=== PATIENT | male | born 1960 | race African-American/Black ===

== ENCOUNTER 2017-07-21 16:17 | Emergency (ER) | payer MEDICAID, MEDICARE ==
[~2017-07-21] VITALS: Ht 175.3 cm; Wt 110.0 kg
[2017-07-21 16:18] VITALS: BP 171/101
== END 2017-07-21 19:44 | disposition left against medical advice (07) ==
LOC: ER 16:38
DX: R22.33 Localized swelling, mass and lump, upper limb, bilateral (principal); Z53.21 Procedure and treatment not carried out due to patient leaving prior to being seen by health care provider

== ENCOUNTER 2021-01-01 12:48 | Emergency (ER) | payer MEDICAID, MEDICARE ==
[~2021-01-01] VITALS: Ht 177.8 cm; Wt 102.0 kg
[2021-01-01] MEDS ORDERED: ONDANSETRON HCL 4MG/2ML INJ IV STA (13:11)
[2021-01-01] MEDS ORDERED: MORPHINE SULFATE 4 MG/ML CPJ (NOT FOR IM USE) IV STA (13:11)
[2021-01-01 13:27] LABS: BASOPHILS % 1.2 % (0.0-2.0); EOSINOPHILS % 1.9 % (0.0-5.0); HEMATOCRIT. 39.6 % (42.0-52.0); HEMOGLOBIN. 13.7 g/dL (14.0-18.0); LYMPHOCYTES % 41.8 % (20.0-50.0); MEAN CORPUSCULAR HEMOGLOBIN 32.6 pg (28.0-32.0); MEAN CORPUSCULAR VOLUME 94.3 fL (80.0-94.0); MEAN PLATELET VOLUME 7.9 fl (7.4-10.4); MONOCYTES % 14.5 % (2.0-8.0); NEUTROPHILS % 40.6 % (40.0-76.0); PLATELET 146 x1000/uL (130-400); RED CELL DISTRIBUTION WIDTH 15.1 % (11.6-14.6)
[2021-01-01 13:34] LABS: CHLORIDE 104 mEq/L (98-107)
[2021-01-01 13:37] LABS: INR 1.1; PROTHROMBIN TIME 11.8 sec (9.6-11.0)
[2021-01-01 15:16] LABS: CLARITY URINE CLEAR (CLEAR); COLOR URINE YELLOW (YELLOW); KETONES URINE NEGATIVE (NEGATIVE); LEUKOCYTE ESTERASE URINE NEGATIVE (NEGATIVE); NITRITE URINE NEGATIVE (NEGATIVE); OCCULT BLOOD URINE NEGATIVE (NEGATIVE); PH URINE 5.5 (4.5-8.0); PROTEIN URINE 2+ (NEGATIVE); SPECIFIC GRAVITY URINE 1.013 (1.005-1.030); UROBILINOGEN URINE 0.2 E.U./dL (0.2-1.0)
[2021-01-01 16:07] VITALS: BP 175/105
== END 2021-01-01 16:25 | disposition home or self-care (01) ==
LOC: ER 13:04
DX: R10.31 Right lower quadrant pain (principal); M54.5 Low back pain; R80.9 Proteinuria, unspecified; I11.0 Hypertensive heart disease with heart failure; I50.9 Heart failure, unspecified
CPT/HCPCS: 36415; 74176; 80053; 81003; 83690; 85025; 85610; 96374; 99284; J2405; Z7610; J2270

== ENCOUNTER 2021-11-04 13:19 | Inpatient (IN) | payer MEDICAID ==
[~2021-11-04] VITALS: Ht 175.3 cm; Wt 53.1 kg
[2021-11-04] MEDS ORDERED: ONDANSETRON HCL 4MG/2ML INJ IV ONE (14:15)
[2021-11-04] MEDS ORDERED: MORPHINE SULFATE 4 MG/ML CPJ (NOT FOR IM USE) IV ONE (14:15)
[2021-11-04] MEDS ORDERED: SODIUM CHLORIDE 0.9% 1,000 ML IV ONE (14:15)
[2021-11-04 15:55] LABS: BASOPHILS % 0.5 % (0.0-2.0); EOSINOPHILS % 4.9 % (0.0-5.0); HEMATOCRIT. 44.3 % (42.0-52.0); MEAN CORPUSCULAR HEMOGLOBIN 30.2 pg (28.0-32.0); MEAN PLATELET VOLUME 8.9 fl (7.4-10.4); MONOCYTES % 11.8 % (2.0-8.0); NEUTROPHILS % 48.8 % (40.0-76.0); PLATELET 161 x1000/uL (130-400); RED BLOOD CELL COUNT 4.98 mill/uL (4.7-6.1); RED CELL DISTRIBUTION WIDTH 15.1 % (11.6-14.6)
[2021-11-04 16:00] LABS: CHLORIDE 106 mEq/L (98-107)
[2021-11-04] MEDS ORDERED: ACETAMINOPHEN 325MG TABLET PO PRN ×2 (16:45)
[2021-11-04] MEDS ORDERED: CLONIDINE 0.1MG TABLET PO PRN (16:45)
[2021-11-04] MEDS ORDERED: NALOXONE HCL 0.4MG/ML VIAL IV PRN (17:00)
[2021-11-04] MEDS: DEXT 5%/0.9% NACL 1,000 ML IV SCH (17:01)
[2021-11-04] MEDS: ONDANSETRON HCL 4MG/2ML INJ IV PRN (23:10)
[2021-11-04] MEDS: MORPHINE SULFATE 2 MG/ML CPJ (NOT FOR IM USE) IV PRN (23:12)
[2021-11-05] VITALS: BP_SYST 158; BP_SYST 166; BP_DIAS 89; BP_DIAS 95
[2021-11-05] MEDS: ZOLPIDEM TARTRATE 5MG TABLET PO PRN ×2 (00:42→23:13)
[2021-11-05] MEDS ORDERED: ZOLP10TA2 PO (03:09)
[2021-11-05] MEDS ORDERED: TAMS-11 PO (03:09)
[2021-11-05] MEDS ORDERED: RIVA20TA PO (03:09)
[2021-11-05] MEDS ORDERED: CARV25TA47 MT (03:09)
[2021-11-05] MEDS ORDERED: ZOLP5TAB2 PO (03:09)
[2021-11-05] MEDS ORDERED: *PATIENT'S OWN MEDICATION STORAGE XX SCH (05:30)
[2021-11-05 06:27] LABS: BASOPHILS % 0.6 % (0.0-2.0); EOSINOPHILS % 5.6 % (0.0-5.0); HEMATOCRIT. 39.2 % (42.0-52.0); HEMOGLOBIN. 13.1 g/dL (14.0-18.0); LYMPHOCYTES % 37.2 % (20.0-50.0); MEAN CORPUSCULAR HEMOGLOBIN 30.3 pg (28.0-32.0); MEAN CORPUSCULAR VOLUME 90.6 fL (80.0-94.0); MEAN PLATELET VOLUME 8.8 fl (7.4-10.4); MONOCYTES % 13.1 % (2.0-8.0); NEUTROPHILS % 43.5 % (40.0-76.0); PLATELET 141 x1000/uL (130-400); RED BLOOD CELL COUNT 4.33 mill/uL (4.7-6.1)
[2021-11-05 07:15] LABS: CHLORIDE 110 mEq/L (98-107)
[2021-11-05 07:25] LABS: PHOSPHORUS 3.4 mg/dL (2.5-4.9)
[2021-11-05] MEDS: ONDANSETRON HCL 4MG/2ML INJ IV PRN ×2 (07:58→20:39)
[2021-11-05 08:00] VITALS: BP 146/86
[2021-11-05] MEDS: TAMSULOSIN HCL 0.4MG SR CAPSULE PO SCH (11:09)
[2021-11-05] MEDS: DEXT 5%/0.9% NACL 1,000 ML IV SCH (11:09)
[2021-11-05 11:47] LABS: CLARITY URINE CLEAR (CLEAR); COLOR URINE YELLOW (YELLOW); KETONES URINE NEGATIVE (NEGATIVE); LEUKOCYTE ESTERASE URINE NEGATIVE (NEGATIVE); NITRITE URINE NEGATIVE (NEGATIVE); OCCULT BLOOD URINE NEGATIVE (NEGATIVE); PROTEIN URINE 2+ (NEGATIVE); SPECIFIC GRAVITY URINE 1.015 (1.005-1.030); UROBILINOGEN URINE 0.2 E.U./dL (0.2-1.0)
[2021-11-05 12:00] VITALS: BP 152/92
[2021-11-05] MEDS ORDERED: MEDICATION NOT ON FORMULARY EA (Carvedilol 1 TAB) MT SCH (13:00)
[2021-11-05] MEDS: CARVEDILOL 12.5MG TABLET PO SCH ×2 (14:37→20:40)
[2021-11-05] MEDS: ENOXAPARIN 60MG/0.6ML SYR SUBCUT SCH (14:37)
[2021-11-05 16:57] LABS: PHOSPHORUS 2.2 mg/dL (2.5-4.9)
[2021-11-05 17:00] LABS: TOTAL IRON BINDING CAPACITY 328 ug/dL (250-450)
[2021-11-05 17:16] LABS: FOLIC ACID (FOLATE) SERUM 12.2 ng/mL (>5.38)
[2021-11-05 20:00] VITALS: BP 155/92
[2021-11-05] MEDS: PANTOPRAZOLE SODIUM 40 MG/VIAL IV SCH (20:39)
[2021-11-05] MEDS: MORPHINE SULFATE 2 MG/ML CPJ (NOT FOR IM USE) IV PRN ×2 (21:58→22:06)
[2021-11-06] MEDS: ENOXAPARIN 60MG/0.6ML SYR SUBCUT SCH ×2 (02:01→14:00)
[2021-11-06 07:50] LABS: INR 1.2; PROTHROMBIN TIME 12.3 sec (9.6-11.0)
[2021-11-06 07:59] LABS: BASOPHILS % 0.4 % (0.0-2.0); EOSINOPHILS % 4.9 % (0.0-5.0); HEMATOCRIT. 38.5 % (42.0-52.0); LYMPHOCYTES % 41.1 % (20.0-50.0); MEAN CORPUSCULAR HEMOGLOBIN 30.3 pg (28.0-32.0); MEAN CORPUSCULAR VOLUME 90.2 fL (80.0-94.0); MONOCYTES % 14.1 % (2.0-8.0); NEUTROPHILS % 39.5 % (40.0-76.0); PLATELET 121 x1000/uL (130-400); RED BLOOD CELL COUNT 4.27 mill/uL (4.7-6.1); RED CELL DISTRIBUTION WIDTH 14.7 % (11.6-14.6)
[2021-11-06 08:00] VITALS: BP 135/86
[2021-11-06 08:01] LABS: CHLORIDE 108 mEq/L (98-107)
[2021-11-06] MEDS: ONDANSETRON HCL 4MG/2ML INJ IV PRN (08:35)
[2021-11-06] MEDS: PANTOPRAZOLE SODIUM 40 MG/VIAL IV SCH (08:36)
[2021-11-06] MEDS: TAMSULOSIN HCL 0.4MG SR CAPSULE PO SCH (08:37)
[2021-11-06] MEDS: CARVEDILOL 12.5MG TABLET PO SCH (08:37)
[2021-11-06] MEDS ORDERED: POTASSIUM CHLORIDE 20MEQ/PACKET PO SCH (11:45)
[2021-11-06 12:00] VITALS: BP 138/90
[2021-11-06 16:00] VITALS: BP 147/90
[2021-11-06 17:33] VITALS: BP 147/90
[2021-11-06 17:48] VITALS: BP 147/90
== END 2021-11-06 19:07 | disposition home or self-care (01) | DRG 254 ==
LOC: ER 13:19 → SUPCPDRO 14:55 → 6EST 14:57 → ENRESERV 16:37 → 6EST 22:09
PROVIDERS: ADMIT Internal Medicine; ATTEND Internal Medicine
DX: K43.6 Other and unspecified ventral hernia with obstruction, without gangrene (principal); K56.609 Unspecified intestinal obstruction, unspecified as to partial versus complete obstruction; N17.9 Acute kidney failure, unspecified; E44.1 Mild protein-calorie malnutrition; E83.39 Other disorders of phosphorus metabolism; E87.8 Other disorders of electrolyte and fluid balance, not elsewhere classified; I50.9 Heart failure, unspecified; I13.0 Hypertensive heart and chronic kidney disease with heart failure and stage 1 through stage 4 chronic kidney disease, or unspecified chronic kidney disease; I48.20 Chronic atrial fibrillation, unspecified; N40.0 Benign prostatic hyperplasia without lower urinary tract symptoms; D64.9 Anemia, unspecified; E80.6 Other disorders of bilirubin metabolism; R74.01 Elevation of levels of liver transaminase levels; Z60.2 Problems related to living alone; K42.9 Umbilical hernia without obstruction or gangrene; N18.9 Chronic kidney disease, unspecified; Z20.822 Contact with and (suspected) exposure to COVID-19; E87.6 Hypokalemia; J45.909 Unspecified asthma, uncomplicated; Z79.01 Long term (current) use of anticoagulants; Z93.3 Colostomy status; Z90.49 Acquired absence of other specified parts of digestive tract; Z79.899 Other long term (current) drug therapy; Z68.1 Body mass index [BMI] 19.9 or less, adult
CPT/HCPCS: 36415; 71045; 74018; 74176; 80048; 80053; 81003; 82550; 82570; 82607; 82728; 82746; 83540; 83550; 83735; 83880; 84100; 84300; 84484; 85025; 85044; 85651; 86140; 87426; 93005; 99285; C9113; J1650; J2270; J2405; J7030; J7042

== ENCOUNTER 2022-09-15 09:26 | Inpatient (IN) | payer MEDICAID ==
[~2022-09-15] VITALS: Ht 330.2 cm; Wt 108.9 kg
[~2022-09-15 09:26] MED LIST: CARV25TA47 MT; RIVA20TA PO; TAMS-11 PO; ZOLP10TA2 PO; ZOLP5TAB2 PO
[2022-09-15] MEDS ORDERED: ONDANSETRON HCL 4MG/2ML INJ IV STA ×4 (10:04→16:04)
[2022-09-15] MEDS ORDERED: MORPHINE SULFATE 4 MG/ML CPJ (NOT FOR IM USE) IV STA ×4 (10:04→16:04)
[2022-09-15] MEDS ORDERED: SODIUM CHLORIDE 0.9% 1,000 ML IV ONE ×3 (10:15)
[2022-09-15 11:15] LABS: BASOPHILS % 0.4 % (0.0-2.0); EOSINOPHILS % 2.3 % (0.0-5.0); HEMATOCRIT. 43.4 % (42.0-52.0); HEMOGLOBIN. 14.8 g/dL (14.0-18.0); LYMPHOCYTES % 15.1 % (20.0-50.0); MEAN CORPUSCULAR HEMOGLOBIN 31.2 pg (28.0-32.0); MEAN CORPUSCULAR VOLUME 91.5 fL (80.0-94.0); MEAN PLATELET VOLUME 9.1 fl (7.4-10.4); MONOCYTES % 7.7 % (2.0-8.0); NEUTROPHILS % 74.5 % (40.0-76.0); PLATELET 154 x1000/uL (130-400); RED BLOOD CELL COUNT 4.75 mill/uL (4.7-6.1); RED CELL DISTRIBUTION WIDTH 16.3 % (11.6-14.6)
[2022-09-15 11:25] LABS: CHLORIDE 100 mEq/L (98-107)
[2022-09-15] MEDS ORDERED: POTASSIUM CHLORIDE 20MEQ TABLET SR PO ONE (11:45)
[2022-09-15] MEDS ORDERED: IOHEXOL-300 100 ML BOTTLE ONE (12:21)
[2022-09-15] MEDS ORDERED: VISCOUS LIDOCAINE 2% 15 ML UDC MM STA (16:04)
[2022-09-16] VITALS: BP 130/83
[2022-09-16 00:49] VITALS: BP 130/83
[2022-09-16] MEDS ORDERED: MORPHINE SULFATE 2 MG/ML CPJ (NOT FOR IM USE) IV PRN (07:45)
[2022-09-16] MEDS ORDERED: ONDANSETRON HCL 4MG/2ML INJ IV PRN (07:45)
[2022-09-16 08:00] VITALS: BP_SYST 136; BP_SYST 138; BP_DIAS 86; BP_DIAS 89
[2022-09-16] MEDS ORDERED: NALOXONE HCL 0.4MG/ML VIAL IV PRN (08:00)
[2022-09-16] MEDS: PANTOPRAZOLE SODIUM 40 MG/VIAL IV SCH (10:01)
[2022-09-16] MEDS: ENOXAPARIN 30MG/0.3ML SYR SUBCUT SCH ×2 (10:01→21:00)
[2022-09-16] MEDS: DEXT 5%/0.45% NACL 1000ML 1,000 ML IV SCH ×2 (10:07→21:05)
[2022-09-16 12:00] VITALS: BP_SYST 138; BP_SYST 140; BP_DIAS 77; BP_DIAS 89
[2022-09-16 16:00] VITALS: BP_SYST 137; BP_SYST 138; BP_DIAS 86; BP_DIAS 89
[2022-09-16 20:00] VITALS: BP 159/93
[2022-09-17] VITALS: BP 156/97
[2022-09-17 04:00] VITALS: BP 155/90
[2022-09-17 07:52] LABS: CHLORIDE 106 mEq/L (98-107)
[2022-09-17 07:53] LABS: BASOPHILS % 0.3 % (0.0-2.0); EOSINOPHILS % 6.8 % (0.0-5.0); HEMATOCRIT. 38.2 % (42.0-52.0); HEMOGLOBIN. 12.9 g/dL (14.0-18.0); LYMPHOCYTES % 30.4 % (20.0-50.0); MEAN CORPUSCULAR HEMOGLOBIN 30.9 pg (28.0-32.0); MEAN CORPUSCULAR VOLUME 91.4 fL (80.0-94.0); MEAN PLATELET VOLUME 8.9 fl (7.4-10.4); MONOCYTES % 12.4 % (2.0-8.0); NEUTROPHILS % 50.1 % (40.0-76.0); PLATELET 125 x1000/uL (130-400); RED BLOOD CELL COUNT 4.18 mill/uL (4.7-6.1); RED CELL DISTRIBUTION WIDTH 16.1 % (11.6-14.6)
[2022-09-17 08:00] VITALS: BP 138/81
[2022-09-17] MEDS: DEXT 5%/0.45% NACL 1000ML 1,000 ML IV SCH ×2 (10:29→23:34)
[2022-09-17] MEDS: ENOXAPARIN 30MG/0.3ML SYR SUBCUT SCH ×2 (10:31→21:48)
[2022-09-17] MEDS: PANTOPRAZOLE SODIUM 40 MG/VIAL IV SCH (10:33)
[2022-09-17] MEDS ORDERED: POTASSIUM CHLORIDE 20MEQ TABLET SR PO SCH (11:30)
[2022-09-17 12:00] VITALS: BP 138/88
[2022-09-17 16:00] VITALS: BP 165/113
[2022-09-18] VITALS: BP 129/80
[2022-09-18 04:00] VITALS: BP 136/77
[2022-09-18 08:00] VITALS: BP 143/89
[2022-09-18] MEDS: PANTOPRAZOLE SODIUM 40 MG/VIAL IV SCH (09:53)
[2022-09-18] MEDS: ENOXAPARIN 30MG/0.3ML SYR SUBCUT SCH (09:56)
[2022-09-18 12:00] VITALS: BP 152/99
[2022-09-18] MEDS: DEXT 5%/0.45% NACL 1000ML 1,000 ML IV SCH (12:41)
== END 2022-09-18 15:50 | disposition home or self-care (01) | DRG 247 ==
LOC: ER 09:26 → 6EST 14:28
PROVIDERS: ADMIT Internal Medicine; ATTEND Internal Medicine
DX: K56.609 Unspecified intestinal obstruction, unspecified as to partial versus complete obstruction (principal); I11.0 Hypertensive heart disease with heart failure; I50.9 Heart failure, unspecified; J45.909 Unspecified asthma, uncomplicated; I48.91 Unspecified atrial fibrillation
CPT/HCPCS: 36415; 74018; 74177; 80048; 80053; 83605; 85025; 93005; 99291; C9113; J1650; J2270; J2405; J7030; Q9967

== ENCOUNTER 2022-11-08 11:46 | Inpatient (IN) | payer MEDICAID ==
[~2022-11-08] VITALS: Ht 175.3 cm; Wt 113.4 kg
[2022-11-08 13:03] LABS: BASOPHILS % 0.7 % (0.0-2.0); EOSINOPHILS % 1.2 % (0.0-5.0); HEMOGLOBIN. 13.7 g/dL (14.0-18.0); LYMPHOCYTES % 19.9 % (20.0-50.0); MEAN CORPUSCULAR HEMOGLOBIN 31.4 pg (28.0-32.0); MONOCYTES % 6.6 % (2.0-8.0); NEUTROPHILS % 71.6 % (40.0-76.0); RED BLOOD CELL COUNT 4.36 mill/uL (4.7-6.1); RED CELL DISTRIBUTION WIDTH 16.1 % (11.6-14.6)
[2022-11-08 13:08] LABS: CHLORIDE 103 mEq/L (98-107)
[2022-11-08 13:50] LABS: MEAN PLATELET VOLUME 9.9 fl (7.4-10.4); PLATELET 122 x1000/uL (130-400)
[2022-11-08] MEDS ORDERED: ASPIRIN 325MG EC TABLET PO NR (14:00)
[2022-11-08] MEDS ORDERED: FUROSEMIDE 20MG/2ML VIAL IVP ONE (15:30)
[2022-11-08] MEDS ORDERED: ASPIRIN 325MG EC TABLET PO SCH (16:45)
[2022-11-08] MEDS: IPRATROPIUM BROMIDE (0.02%) 0.5MG/2.5ML NEB HHN SCH (17:06)
[2022-11-08] MEDS: ALBUTEROL (0.083%) 2.5MG/3ML NEB HHN SCH (17:06)
[2022-11-08] MEDS: FUROSEMIDE 40MG/4ML VIAL IVP SCH (17:26)
[2022-11-08 18:00] VITALS: BP 135/114
[2022-11-08 18:04] VITALS: BP 135/114
[2022-11-08 20:00] VITALS: BP 132/88
[2022-11-08] MEDS ORDERED: INFLUENZA VACCINE 05/PF 0.5 ML SYRINGE IM ONE (20:00)
[2022-11-08 20:40] LABS: BASOPHILS % 0.4 % (0.0-2.0); EOSINOPHILS % 1.7 % (0.0-5.0); HEMATOCRIT. 42.9 % (42.0-52.0); HEMOGLOBIN. 14.1 g/dL (14.0-18.0); LYMPHOCYTES % 20.6 % (20.0-50.0); MEAN CORPUSCULAR HEMOGLOBIN 31.4 pg (28.0-32.0); MEAN CORPUSCULAR VOLUME 95.3 fL (80.0-94.0); MEAN PLATELET VOLUME 9.7 fl (7.4-10.4); NEUTROPHILS % 72.3 % (40.0-76.0); PLATELET 125 x1000/uL (130-400); RED CELL DISTRIBUTION WIDTH 16.2 % (11.6-14.6)
[2022-11-08] MEDS: ZOLPIDEM TARTRATE 5MG TABLET PO SCH (21:22)
[2022-11-08] MEDS: CARVEDILOL 12.5MG TABLET PO SCH (21:23)
[2022-11-08] MEDS: ENOXAPARIN 30MG/0.3ML SYR SUBCUT SCH (21:24)
[2022-11-09] VITALS: BP 143/78
[2022-11-09] MEDS: ALBUTEROL (0.083%) 2.5MG/3ML NEB HHN SCH ×4 (01:40→20:59)
[2022-11-09] MEDS: IPRATROPIUM BROMIDE (0.02%) 0.5MG/2.5ML NEB HHN SCH ×4 (01:40→20:59)
[2022-11-09 04:00] VITALS: BP 160/112
[2022-11-09] MEDS: FUROSEMIDE 40MG/4ML VIAL IVP SCH (06:26)
[2022-11-09 08:00] VITALS: BP 137/100
[2022-11-09 08:16] LABS: HEPATITIS B SURFACE ANTIGEN NEGATIVE
[2022-11-09] MEDS: ENOXAPARIN 30MG/0.3ML SYR SUBCUT SCH ×2 (08:35→21:32)
[2022-11-09] MEDS: TAMSULOSIN HCL 0.4MG SR CAPSULE PO SCH (08:35)
[2022-11-09] MEDS: CARVEDILOL 12.5MG TABLET PO SCH ×2 (08:46→22:34)
[2022-11-09] MEDS ORDERED: FUROSEMIDE 40MG/4ML VIAL IVP SCH ×2 (09:00)
[2022-11-09] MEDS ORDERED: LOSARTAN POTASSIUM 25 MG TABLET PO SCH (09:00)
[2022-11-09] MEDS ORDERED: NALOXONE HCL 0.4MG/ML VIAL IV PRN (09:00)
[2022-11-09] MEDS: MORPHINE SULFATE 2 MG/ML CPJ (NOT FOR IM USE) IV PRN (09:09)
[2022-11-09 12:00] VITALS: BP 104/87
[2022-11-09 16:00] VITALS: BP 118/82
[2022-11-09] MEDS: LOSARTAN POTASSIUM 25 MG TABLET PO SCH (17:46)
[2022-11-09] MEDS: FUROSEMIDE 100MG/10ML VIAL IVP SCH (17:47)
[2022-11-09 20:00] VITALS: BP 124/99
[2022-11-09] MEDS: ZOLPIDEM TARTRATE 5MG TABLET PO SCH (22:35)
[2022-11-10] VITALS: BP 124/87
[2022-11-10] MEDS: ALBUTEROL (0.083%) 2.5MG/3ML NEB HHN SCH ×2 (02:37→07:51)
[2022-11-10] MEDS: IPRATROPIUM BROMIDE (0.02%) 0.5MG/2.5ML NEB HHN SCH ×2 (02:38→07:51)
[2022-11-10 04:00] VITALS: BP 137/104
[2022-11-10] MEDS: MORPHINE SULFATE 2 MG/ML CPJ (NOT FOR IM USE) IV PRN ×2 (04:32→08:28)
[2022-11-10 06:30] VITALS: BP 141/95
[2022-11-10] MEDS: FUROSEMIDE 100MG/10ML VIAL IVP SCH (07:01)
[2022-11-10 08:00] VITALS: BP 120/88
[2022-11-10 08:07] LABS: CHLORIDE 100 mEq/L (98-107)
[2022-11-10 08:13] LABS: BASOPHILS % 0.9 % (0.0-2.0); EOSINOPHILS % 3.3 % (0.0-5.0); HEMATOCRIT. 38.9 % (42.0-52.0); HEMOGLOBIN. 12.8 g/dL (14.0-18.0); LYMPHOCYTES % 27.8 % (20.0-50.0); MEAN CORPUSCULAR HEMOGLOBIN 31.6 pg (28.0-32.0); MEAN CORPUSCULAR VOLUME 95.9 fL (80.0-94.0); MEAN PLATELET VOLUME 9.3 fl (7.4-10.4); MONOCYTES % 9.3 % (2.0-8.0); NEUTROPHILS % 58.7 % (40.0-76.0); PLATELET 89 x1000/uL (130-400); RED BLOOD CELL COUNT 4.06 mill/uL (4.7-6.1)
[2022-11-10] MEDS: CARVEDILOL 12.5MG TABLET PO SCH (08:27)
[2022-11-10] MEDS: TAMSULOSIN HCL 0.4MG SR CAPSULE PO SCH (08:27)
[2022-11-10] MEDS: ENOXAPARIN 30MG/0.3ML SYR SUBCUT SCH (08:27)
[2022-11-10] MEDS: LOSARTAN POTASSIUM 25 MG TABLET PO SCH (08:27)
[2022-11-10] MEDS ORDERED: REGADENOSON 0.4 MG/5 ML IV NR (09:15)
[2022-11-10] MEDS ORDERED: FURO-151 MT (10:44)
[2022-11-10] MEDS ORDERED: LOSA25TA26 MT (10:44)
[2022-11-10] MEDS ORDERED: ASPIRIN 81MG EC TABLET PO NR (11:15)
[2022-11-10 12:00] VITALS: BP 101/73
[2022-11-10] MEDS ORDERED: HYDROCODONE/ACETAMINOPHEN 5/325MG TABLET PO NR (12:45)
[2022-11-11] MEDS ORDERED: ASPIRIN 81MG EC TABLET PO SCH (09:00)
[2022-11-22] MEDS ORDERED: SACU1TAB MT (13:26)
[2022-11-22] MEDS ORDERED: ASPI-1406 MT (13:26)
== END 2022-11-10 15:30 | disposition home or self-care (01) | DRG 194 ==
LOC: ER 13:09 → 8WST 14:48
PROVIDERS: ADMIT Internal Medicine; ATTEND Internal Medicine
DX: I11.0 Hypertensive heart disease with heart failure (principal); N17.9 Acute kidney failure, unspecified; E44.0 Moderate protein-calorie malnutrition; I48.92 Unspecified atrial flutter; I42.9 Cardiomyopathy, unspecified; Z79.01 Long term (current) use of anticoagulants; I48.0 Paroxysmal atrial fibrillation; E66.9 Obesity, unspecified; I50.23 Acute on chronic systolic (congestive) heart failure; G47.33 Obstructive sleep apnea (adult) (pediatric); I49.3 Ventricular premature depolarization; J45.909 Unspecified asthma, uncomplicated; Z68.37 Body mass index [BMI] 37.0-37.9, adult; Z79.899 Other long term (current) drug therapy; Z68.36 Body mass index [BMI] 36.0-36.9, adult; Z90.79 Acquired absence of other genital organ(s); Z93.3 Colostomy status
CPT/HCPCS: 36415; 71045; 80048; 80053; 83880; 84484; 85025; 86803; 87340; 90686; 93005; 93306; 93970; 94640; 99285; J1650; J1940; J2270

== ENCOUNTER 2022-11-12 23:37 | Emergency (ER) | payer MEDICAID ==
[~2022-11-12] VITALS: Ht 185.4 cm; Wt 122.0 kg
[~2022-11-12 23:37] MED LIST changes: +FURO-151 MT; +LOSA25TA26 MT
[2022-11-13 00:15] VITALS: BP 140/87
[2022-11-13 00:57] LABS: HEMOGLOBIN. 12.9 g/dL (14.0-18.0); MEAN CORPUSCULAR VOLUME 93.7 fL (80.0-94.0); MEAN PLATELET VOLUME 8.9 fl (7.4-10.4); PLATELET 129 x1000/uL (130-400); RED BLOOD CELL COUNT 4.16 mill/uL (4.7-6.1); RED CELL DISTRIBUTION WIDTH 15.8 % (11.6-14.6)
[2022-11-13 01:00] LABS: CHLORIDE 103 mEq/L (98-107)
[2022-11-13 02:24] LABS: PLATELET ESTIMATE NORMAL
[2022-11-13] MEDS ORDERED: HYDROCODONE/ACETAMINOPHEN 5/325MG TABLET PO ONE (04:45)
[2022-11-13] MEDS ORDERED: CLINDAMYCIN 600 MG in DEXTROSE 5% WATER 50 ML IV ONE (07:30)
[2022-11-13] MEDS ORDERED: CLINDAMYCIN 600MG PREMIX 50 ML IV SCH (07:45)
== END 2022-11-13 06:27 | disposition home or self-care (01) ==
LOC: ER 23:37
DX: R10.32 Left lower quadrant pain (principal); R19.34 Left lower quadrant abdominal rigidity; K46.9 Unspecified abdominal hernia without obstruction or gangrene; K40.90 Unilateral inguinal hernia, without obstruction or gangrene, not specified as recurrent; K80.50 Calculus of bile duct without cholangitis or cholecystitis without obstruction; I11.0 Hypertensive heart disease with heart failure; I50.9 Heart failure, unspecified; Z90.79 Acquired absence of other genital organ(s)
CPT/HCPCS: 36415; 74176; 80053; 85025; 99284; J3490; J7060

== ENCOUNTER 2022-12-01 06:46 | Inpatient (IN) | payer MEDICAID ==
[~2022-12-01] VITALS: Ht 175.3 cm; Wt 117.9 kg
[~2022-12-01 06:46] MED LIST changes: +ASPI-1406 MT; -LOSA25TA26 MT; +SACU1TAB MT; -ZOLP10TA2 PO
[2022-12-01] MEDS ORDERED: FUROSEMIDE 40MG/4ML VIAL IVP ONE (10:00)
[2022-12-01 11:13] LABS: BASOPHILS % 0.6 % (0.0-2.0); EOSINOPHILS % 2.4 % (0.0-5.0); HEMATOCRIT. 37.5 % (42.0-52.0); HEMOGLOBIN. 12.5 g/dL (14.0-18.0); LYMPHOCYTES % 28.4 % (20.0-50.0); MEAN CORPUSCULAR VOLUME 93.5 fL (80.0-94.0); MEAN PLATELET VOLUME 9.1 fl (7.4-10.4); MONOCYTES % 13.7 % (2.0-8.0); NEUTROPHILS % 54.9 % (40.0-76.0); PLATELET 153 x1000/uL (130-400); RED BLOOD CELL COUNT 4.01 mill/uL (4.7-6.1)
[2022-12-01 11:20] LABS: CHLORIDE 107 mEq/L (98-107)
[2022-12-01 11:21] LABS: INR 1.4; PROTHROMBIN TIME 15.1 sec (9.6-11.0)
[2022-12-01] MEDS ORDERED: FUROSEMIDE 40MG/4ML VIAL IVP NR (19:00)
[2022-12-01 21:30] VITALS: BP 118/96
[2022-12-01 21:37] VITALS: BP 118/96
[2022-12-01] MEDS ORDERED: ONDANSETRON HCL 4MG/2ML INJ IV PRN (22:15)
[2022-12-01] MEDS ORDERED: ACETAMINOPHEN 325MG TABLET PO PRN (22:15)
[2022-12-01] MEDS ORDERED: CLONIDINE 0.1MG TABLET PO PRN (22:15)
[2022-12-01] MEDS ORDERED: NALOXONE HCL 0.4MG/ML VIAL IV PRN (23:30)
[2022-12-01] MEDS: METHYLPREDNISOLONE SOD SUCC 40 MG/ML VIAL IV SCH (23:33)
[2022-12-01] MEDS: ZOLPIDEM TARTRATE 5MG TABLET PO SCH (23:33)
[2022-12-01 23:34] VITALS: BP 135/92
[2022-12-01] MEDS: RIVAROXABAN 20 MG TABLET PO SCH (23:35)
[2022-12-01] MEDS: TAMSULOSIN HCL 0.4MG SR CAPSULE PO SCH (23:35)
[2022-12-02] VITALS (8 sets, daily range): BP systolic 120–156; BP diastolic 61–113
[2022-12-02] MEDS: IPRATROPIUM/ALBUTEROL 0.5-3(2.5)MG/3ML NEB HHN SCH ×7 (00:38→21:11)
[2022-12-02] MEDS: GUAIFENESIN-DM 200MG-20MG/10ML UDC PO PRN ×3 (01:35→21:46)
[2022-12-02] MEDS: METHYLPREDNISOLONE SOD SUCC 40 MG/ML VIAL IV SCH ×3 (06:35→21:37)
[2022-12-02 07:16] LABS: BASOPHILS % 0.3 % (0.0-2.0); EOSINOPHILS % 0.1 % (0.0-5.0); HEMATOCRIT. 36.4 % (42.0-52.0); LYMPHOCYTES % 13.7 % (20.0-50.0); MEAN CORPUSCULAR HEMOGLOBIN 30.9 pg (28.0-32.0); MEAN CORPUSCULAR VOLUME 93.4 fL (80.0-94.0); MEAN PLATELET VOLUME 9.5 fl (7.4-10.4); MONOCYTES % 4.7 % (2.0-8.0); NEUTROPHILS % 81.2 % (40.0-76.0); PLATELET 149 x1000/uL (130-400); RED BLOOD CELL COUNT 3.89 mill/uL (4.7-6.1)
[2022-12-02] MEDS: HYDROCODONE/ACETAMINOPHEN 5/325MG TABLET PO PRN ×2 (07:37→14:23)
[2022-12-02 07:54] LABS: CREATINE KINASE MB FRACTION 2.9 ng/mL (0.5-3.6)
[2022-12-02] MEDS ORDERED: TAMSULOSIN HCL 0.4MG SR CAPSULE PO SCH (09:00)
[2022-12-02] MEDS: FUROSEMIDE 40MG/4ML VIAL IVP SCH ×2 (09:43→21:37)
[2022-12-02] MEDS: ASPIRIN 81MG EC TABLET PO SCH (09:43)
[2022-12-02] MEDS ORDERED: DILTIAZEM HCL 5MG/ML 5ML VIAL IV NR (10:30)
[2022-12-02 11:32] LABS: BG BASE EXCESS -1.4 mmol/L (-2.0-2.0); BG CARBOXYHEMOGLOBIN 0.6 % (0.5-1.5); BG DEOXYHEMOGLOBIN 6.3 % (0.0-5.0); BG FRACTION INSPIRED OXYGEN 21; BG HCO3 ACT 23.5 mmol/L (22.0-26.0); BG METHEMOGLOBIN 0.3 % (0.0-1.5); BG OXYGEN SATURATION 93.6 % (92.0-98.5); BG OXYHEMOGLOBIN 92.8 % (94.0-97.0); BG PCO2 40.4 mmHg (35.0-45.0); BG PH 7.383 (7.350-7.450); BG SAMPLE SITE RIGHT RADIAL; BG TOTAL HEMOGLOBIN 13.2 g/dL (12.0-18.0); BG VENT MODE ROOM AIR
[2022-12-02] MEDS ORDERED: IPRATROPIUM/ALBUTEROL 0.5-3(2.5)MG/3ML NEB HHN PRN (12:15)
[2022-12-02] MEDS ORDERED: IPRATROPIUM BROMIDE (0.02%) 0.5MG/2.5ML NEB HHN PRN (12:30)
[2022-12-02] MEDS ORDERED: ALBUTEROL (0.083%) 2.5MG/3ML NEB HHN PRN (12:30)
[2022-12-02] MEDS: DILTIAZEM HCL 30MG TABLET PO SCH ×3 (12:41→23:38)
[2022-12-02 16:31] LABS: CREATINE KINASE MB FRACTION 3.7 ng/mL (0.5-3.6)
[2022-12-02] MEDS: RIVAROXABAN 20 MG TABLET PO SCH (17:36)
[2022-12-02] MEDS ORDERED: ZOLPIDEM TARTRATE 5MG TABLET PO SCH (21:00)
[2022-12-02] MEDS: TAMSULOSIN HCL 0.4MG SR CAPSULE PO SCH (21:38)
[2022-12-02] MEDS: ZOLPIDEM TARTRATE 5MG TABLET PO SCH (23:37)
[2022-12-03] VITALS (8 sets, daily range): BP systolic 122–155; BP diastolic 65–128
[2022-12-03] MEDS: IPRATROPIUM/ALBUTEROL 0.5-3(2.5)MG/3ML NEB HHN SCH ×6 (00:37→20:38)
[2022-12-03] MEDS: DILTIAZEM HCL 30MG TABLET PO SCH ×4 (06:17→23:38)
[2022-12-03] MEDS: HYDROCODONE/ACETAMINOPHEN 5/325MG TABLET PO PRN ×2 (06:20→17:11)
[2022-12-03 07:37] LABS: BASOPHILS % 0.1 % (0.0-2.0); HEMATOCRIT. 37.8 % (42.0-52.0); HEMOGLOBIN. 12.4 g/dL (14.0-18.0); MEAN CORPUSCULAR HEMOGLOBIN 30.8 pg (28.0-32.0); MEAN CORPUSCULAR VOLUME 94.1 fL (80.0-94.0); MEAN PLATELET VOLUME 9.8 fl (7.4-10.4); MONOCYTES % 3.7 % (2.0-8.0); NEUTROPHILS % 87.2 % (40.0-76.0); PLATELET 157 x1000/uL (130-400); RED BLOOD CELL COUNT 4.02 mill/uL (4.7-6.1); RED CELL DISTRIBUTION WIDTH 15.3 % (11.6-14.6)
[2022-12-03 08:49] LABS: CHLORIDE 103 mEq/L (98-107)
[2022-12-03] MEDS: ASPIRIN 81MG EC TABLET PO SCH (08:59)
[2022-12-03] MEDS: FUROSEMIDE 40MG/4ML VIAL IVP SCH ×2 (08:59→21:17)
[2022-12-03] MEDS: METHYLPREDNISOLONE SOD SUCC 40 MG/ML VIAL IV SCH ×2 (08:59→21:17)
[2022-12-03] MEDS: CARVEDILOL 3.125 MG TABLET PO SCH ×2 (09:03→21:20)
[2022-12-03] MEDS ORDERED: METOLAZONE 2.5MG TABLET PO NR (09:45)
[2022-12-03] MEDS: RIVAROXABAN 20 MG TABLET PO SCH (17:11)
[2022-12-03] MEDS: TAMSULOSIN HCL 0.4MG SR CAPSULE PO SCH (21:19)
[2022-12-03] MEDS: GUAIFENESIN-DM 200MG-20MG/10ML UDC PO PRN (22:27)
[2022-12-03] MEDS: ZOLPIDEM TARTRATE 5MG TABLET PO SCH (23:38)
[2022-12-04] MEDS: IPRATROPIUM/ALBUTEROL 0.5-3(2.5)MG/3ML NEB HHN SCH ×3 (00:19→09:49)
[2022-12-04 05:15] VITALS: BP 92/66
[2022-12-04] MEDS: DILTIAZEM HCL 30MG TABLET PO SCH (05:16)
[2022-12-04 07:43] LABS: BASOPHILS % 0.2 % (0.0-2.0); HEMATOCRIT. 35.7 % (42.0-52.0); LYMPHOCYTES % 7.2 % (20.0-50.0); MEAN CORPUSCULAR HEMOGLOBIN 31.4 pg (28.0-32.0); MEAN CORPUSCULAR VOLUME 93.1 fL (80.0-94.0); MEAN PLATELET VOLUME 9.5 fl (7.4-10.4); MONOCYTES % 5.3 % (2.0-8.0); NEUTROPHILS % 87.3 % (40.0-76.0); PLATELET 166 x1000/uL (130-400); RED BLOOD CELL COUNT 3.84 mill/uL (4.7-6.1); RED CELL DISTRIBUTION WIDTH 15.2 % (11.6-14.6)
[2022-12-04 08:00] VITALS: BP 145/97
[2022-12-04] MEDS: CARVEDILOL 3.125 MG TABLET PO SCH (08:52)
[2022-12-04] MEDS: FUROSEMIDE 40MG/4ML VIAL IVP SCH (08:52)
[2022-12-04] MEDS: METHYLPREDNISOLONE SOD SUCC 40 MG/ML VIAL IV SCH (08:52)
[2022-12-04] MEDS: ASPIRIN 81MG EC TABLET PO SCH (08:52)
[2022-12-04] MEDS ORDERED: ALBU6.7H3 INH (09:22)
[2022-12-04] MEDS ORDERED: MED4 MT (09:22)
[2022-12-04] MEDS ORDERED: BUDE6HFA INH (09:22)
[2022-12-04] MEDS ORDERED: FURO-151 MT (09:22)
[2022-12-04 12:01] VITALS: BP 108/77
[2022-12-04 13:22] VITALS: BP 122/100
[2022-12-04 13:53] VITALS: BP 123/95
[2022-12-04] MEDS ORDERED: PREDNISONE 20MG TABLET PO SCH (17:20)
== END 2022-12-04 14:12 | disposition home or self-care (01) | DRG 141 ==
LOC: ER 06:46 → 3WST 14:11 → EDBEDREQ 14:46 → EDBEDREQTM 14:46
PROVIDERS: ADMIT Internal Medicine; ATTEND Internal Medicine
DX: J45.901 Unspecified asthma with (acute) exacerbation (principal); J96.01 Acute respiratory failure with hypoxia; I50.23 Acute on chronic systolic (congestive) heart failure; N17.9 Acute kidney failure, unspecified; E44.1 Mild protein-calorie malnutrition; I48.20 Chronic atrial fibrillation, unspecified; I48.92 Unspecified atrial flutter; D63.1 Anemia in chronic kidney disease; I42.0 Dilated cardiomyopathy; I13.0 Hypertensive heart and chronic kidney disease with heart failure and stage 1 through stage 4 chronic kidney disease, or unspecified chronic kidney disease; E66.9 Obesity, unspecified; I48.91 Unspecified atrial fibrillation; N18.9 Chronic kidney disease, unspecified; E78.5 Hyperlipidemia, unspecified; N40.0 Benign prostatic hyperplasia without lower urinary tract symptoms; Z68.41 Body mass index [BMI] 40.0-44.9, adult; Z79.01 Long term (current) use of anticoagulants; Z79.899 Other long term (current) drug therapy; Z68.38 Body mass index [BMI] 38.0-38.9, adult
CPT/HCPCS: 36415; 36600; 71045; 80048; 80053; 82375; 82550; 82553; 82805; 83735; 83880; 84484; 85025; 93005; 94640; 99285; J1940; J2920; J3490

== ENCOUNTER 2023-01-25 16:13 | Inpatient (IN) | payer MEDICAID ==
[~2023-01-25] VITALS: Ht 175.3 cm; Wt 118.8 kg
[~2023-01-25 16:13] MED LIST changes: +ALBU6.7H3 INH; +BUDE6HFA INH; +DIGO250T79 MT; +DILT240C91 MT; +FERR324T4 MT; +MED4 MT; +PROT40 MT
[2023-01-25] MEDS ORDERED: IPRATROPIUM/ALBUTEROL 0.5-3(2.5)MG/3ML NEB HHN ONE ×2 (16:45→17:15)
[2023-01-25 16:55] LABS: CHLORIDE 95 mEq/L (98-107)
[2023-01-25 16:59] LABS: HEMATOCRIT. 37.9 % (42.0-52.0); HEMOGLOBIN. 12.9 g/dL (14.0-18.0); MEAN CORPUSCULAR HEMOGLOBIN 30.7 pg (28.0-32.0); MEAN PLATELET VOLUME 8.5 fl (7.4-10.4); PLATELET 183 x1000/uL (130-400); RED BLOOD CELL COUNT 4.21 mill/uL (4.7-6.1); RED CELL DISTRIBUTION WIDTH 15.5 % (11.6-14.6)
[2023-01-25] MEDS ORDERED: POTASSIUM CHLORIDE 20MEQ/PACKET PO NR (18:00)
[2023-01-25] MEDS ORDERED: DIPHENHYDRAMINE 50MG/ML VIAL IV ONE (18:45)
[2023-01-25] MEDS ORDERED: DEXAMETHASONE 10 MG/ML VIAL IV ONE (18:45)
[2023-01-25 20:09] LABS: PLATELET ESTIMATE NORMAL
[2023-01-25] MEDS ORDERED: FUROSEMIDE 40MG/4ML VIAL IVP NR (23:15)
[2023-01-26] VITALS (9 sets, daily range): BP systolic 120–154; BP diastolic 74–98
[2023-01-26] MEDS: BLOOD SUGAR DIAGNOSTIC STRIP TEST SCH ×4 (06:40→20:03)
[2023-01-26] MEDS ORDERED: HYDROCODONE/ACETAMINOPHEN 5/325MG TABLET PO PRN (06:45)
[2023-01-26] MEDS ORDERED: DEXTROSE 50% WATER 50ML SYRINGE IV PRN (06:45)
[2023-01-26] MEDS ORDERED: NALOXONE HCL 0.4MG/ML VIAL IV PRN (08:30)
[2023-01-26] MEDS: DOCUSATE SODIUM 100MG CAPSULE PO SCH ×2 (08:50→17:00)
[2023-01-26] MEDS: INSULIN LISPRO 100 UNITS/ML SUBCUT SCH ×4 (08:50→20:15)
[2023-01-26] MEDS: POTASSIUM CHLORIDE 20MEQ TABLET SR PO SCH (08:50)
[2023-01-26] MEDS: FUROSEMIDE 40MG/4ML VIAL IVP SCH ×2 (08:50→17:52)
[2023-01-26] MEDS: METOLAZONE 2.5MG TABLET PO SCH (08:51)
[2023-01-26] MEDS ORDERED: PNEUMOCOCCAL 23-VAL P-SAC VAC 0.5 ML IM ONE (11:00)
[2023-01-26] MEDS ORDERED: CLONIDINE 0.1MG TABLET PO PRN (11:45)
[2023-01-26] MEDS ORDERED: ONDANSETRON HCL 4MG/2ML INJ IV PRN (11:45)
[2023-01-26] MEDS ORDERED: ACETAMINOPHEN 325MG TABLET PO PRN (11:45)
[2023-01-26 12:05] LABS: BASOPHILS % 0.5 % (0.0-2.0); HEMATOCRIT. 37.7 % (42.0-52.0); HEMOGLOBIN. 12.7 g/dL (14.0-18.0); MEAN CORPUSCULAR HEMOGLOBIN 30.5 pg (28.0-32.0); MEAN CORPUSCULAR VOLUME 90.4 fL (80.0-94.0); MEAN PLATELET VOLUME 8.5 fl (7.4-10.4); MONOCYTES % 7.9 % (2.0-8.0); NEUTROPHILS % 72.6 % (40.0-76.0); PLATELET 188 x1000/uL (130-400); RED BLOOD CELL COUNT 4.17 mill/uL (4.7-6.1); RED CELL DISTRIBUTION WIDTH 15.4 % (11.6-14.6)
[2023-01-26] MEDS: ASPIRIN 81MG EC TABLET PO SCH (12:21)
[2023-01-26 12:28] LABS: CHLORIDE 92 mEq/L (98-107)
[2023-01-26 15:48] LABS: CLARITY URINE CLEAR (CLEAR); COLOR URINE YELLOW (YELLOW); KETONES URINE NEGATIVE (NEGATIVE); LEUKOCYTE ESTERASE URINE NEGATIVE (NEGATIVE); NITRITE URINE NEGATIVE (NEGATIVE); OCCULT BLOOD URINE NEGATIVE (NEGATIVE); PROTEIN URINE 1+ (NEGATIVE); SPECIFIC GRAVITY URINE 1.008 (1.005-1.030); UROBILINOGEN URINE 0.2 E.U./dL (0.2-1.0)
[2023-01-26 16:07] LABS: *AMPHETAMINES SCREEN URINE NEGATIVE (NEGATIVE); *BARBITURATES SCREEN URINE NEGATIVE (NEGATIVE); *BENZODIAZEPINES SCREEN URINE NEGATIVE (NEGATIVE); *COCAINE SCREEN URINE NEGATIVE (NEGATIVE); CANNABINOID URINE SCREEN NEGATIVE (NEGATIVE); METHADONE URINE SCREEN NEGATIVE (NEGATIVE); OPIATES URINE SCREEN NEGATIVE (NEGATIVE); PHENCYCLIDINE URINE SCREEN NEGATIVE (NEGATIVE)
[2023-01-26] MEDS: DIGOXIN 250MCG TABLET PO SCH (17:52)
[2023-01-26] MEDS: RIVAROXABAN 20 MG TABLET PO SCH (17:53)
[2023-01-26] MEDS: CARVEDILOL 12.5MG TABLET PO SCH (20:11)
[2023-01-26] MEDS: ZOLPIDEM TARTRATE 5MG TABLET PO SCH (21:00)
[2023-01-26 23:33] LABS: CREATINE KINASE MB FRACTION 3.3 ng/mL (0.5-3.6)
[2023-01-27] VITALS: BP 135/75
[2023-01-27] MEDS: GUAIFENESIN/CODEINE 200-20MG/10ML UDC PO PRN ×3 (00:28→20:27)
[2023-01-27] MEDS: IPRATROPIUM/ALBUTEROL 0.5-3(2.5)MG/3ML NEB NEB PRN ×2 (02:22→09:10)
[2023-01-27 04:00] VITALS: BP 119/72
[2023-01-27] MEDS: BLOOD SUGAR DIAGNOSTIC STRIP TEST SCH ×4 (06:19→20:13)
[2023-01-27] MEDS: INSULIN LISPRO 100 UNITS/ML SUBCUT SCH ×4 (06:28→20:29)
[2023-01-27 06:43] LABS: BASOPHILS % 0.3 % (0.0-2.0); EOSINOPHILS % 0.1 % (0.0-5.0); HEMATOCRIT. 36.7 % (42.0-52.0); HEMOGLOBIN. 12.5 g/dL (14.0-18.0); LYMPHOCYTES % 13.1 % (20.0-50.0); MEAN CORPUSCULAR HEMOGLOBIN 30.5 pg (28.0-32.0); MEAN CORPUSCULAR VOLUME 89.2 fL (80.0-94.0); MEAN PLATELET VOLUME 9.2 fl (7.4-10.4); MONOCYTES % 12.2 % (2.0-8.0); NEUTROPHILS % 74.3 % (40.0-76.0); PLATELET 193 x1000/uL (130-400); RED BLOOD CELL COUNT 4.11 mill/uL (4.7-6.1); RED CELL DISTRIBUTION WIDTH 15.8 % (11.6-14.6)
[2023-01-27 07:01] LABS: PHOSPHORUS 2.5 mg/dL (2.5-4.9)
[2023-01-27 08:00] VITALS: BP 130/41
[2023-01-27] MEDS ORDERED: PANTOPRAZOLE 40MG DR TABLET PO SCH (09:00)
[2023-01-27] MEDS: DOCUSATE SODIUM 100MG CAPSULE PO SCH ×2 (09:08→18:26)
[2023-01-27] MEDS: TAMSULOSIN HCL 0.4MG SR CAPSULE PO SCH (09:08)
[2023-01-27] MEDS: CARVEDILOL 12.5MG TABLET PO SCH ×2 (09:08→20:28)
[2023-01-27] MEDS: POTASSIUM CHLORIDE 20MEQ TABLET SR PO SCH (09:08)
[2023-01-27] MEDS: ASPIRIN 81MG EC TABLET PO SCH (09:09)
[2023-01-27] MEDS: METOLAZONE 2.5MG TABLET PO SCH (09:09)
[2023-01-27] MEDS ORDERED: MAGNESIUM 4 G PREMIX 100 ML IV NR (10:00)
[2023-01-27 12:00] VITALS: BP 145/85
[2023-01-27] MEDS: FUROSEMIDE 40MG/4ML VIAL IVP SCH ×2 (12:49→18:26)
[2023-01-27 16:00] VITALS: BP 141/79
[2023-01-27] MEDS: RIVAROXABAN 20 MG TABLET PO SCH (18:26)
[2023-01-27] MEDS: DIGOXIN 250MCG TABLET PO SCH (18:37)
[2023-01-27 20:00] VITALS: BP 138/95
[2023-01-27] MEDS: ZOLPIDEM TARTRATE 5MG TABLET PO SCH (21:40)
[2023-01-28] VITALS: BP 100/73
[2023-01-28] MEDS: IPRATROPIUM/ALBUTEROL 0.5-3(2.5)MG/3ML NEB NEB PRN (03:46)
[2023-01-28 04:00] VITALS: BP 148/92
[2023-01-28] MEDS: BLOOD SUGAR DIAGNOSTIC STRIP TEST SCH ×2 (05:17→11:40)
[2023-01-28] MEDS: GUAIFENESIN/CODEINE 200-20MG/10ML UDC PO PRN (05:20)
[2023-01-28] MEDS: INSULIN LISPRO 100 UNITS/ML SUBCUT SCH ×2 (05:27→12:10)
[2023-01-28 06:28] LABS: BASOPHILS % 0.5 % (0.0-2.0); EOSINOPHILS % 0.1 % (0.0-5.0); HEMATOCRIT. 38.5 % (42.0-52.0); HEMOGLOBIN. 13.2 g/dL (14.0-18.0); LYMPHOCYTES % 17.4 % (20.0-50.0); MEAN CORPUSCULAR HEMOGLOBIN 30.5 pg (28.0-32.0); MEAN CORPUSCULAR VOLUME 89.2 fL (80.0-94.0); MEAN PLATELET VOLUME 8.4 fl (7.4-10.4); MONOCYTES % 14.4 % (2.0-8.0); NEUTROPHILS % 67.6 % (40.0-76.0); PLATELET 201 x1000/uL (130-400); RED BLOOD CELL COUNT 4.32 mill/uL (4.7-6.1); RED CELL DISTRIBUTION WIDTH 15.2 % (11.6-14.6)
[2023-01-28 07:07] LABS: DIGOXIN 1.9 ng/mL (0.9-2.0)
[2023-01-28 08:00] VITALS: BP 121/68
[2023-01-28] MEDS: TAMSULOSIN HCL 0.4MG SR CAPSULE PO SCH (09:41)
[2023-01-28] MEDS: POTASSIUM CHLORIDE 20MEQ TABLET SR PO SCH (09:41)
[2023-01-28] MEDS: ASPIRIN 81MG EC TABLET PO SCH (09:41)
[2023-01-28] MEDS: DOCUSATE SODIUM 100MG CAPSULE PO SCH (09:42)
[2023-01-28] MEDS: CARVEDILOL 12.5MG TABLET PO SCH (09:42)
[2023-01-28] MEDS: FUROSEMIDE 40MG/4ML VIAL IVP SCH (09:42)
[2023-01-28] MEDS: METOLAZONE 2.5MG TABLET PO SCH (09:43)
[2023-01-28 12:00] VITALS: BP 113/84
[2023-01-28 13:29] VITALS: BP 121/68
[2023-01-29] MEDS ORDERED: ALBU6.7H15 INH (16:40)
[2023-01-29] MEDS ORDERED: GUAI600T26 MT (16:40)
[2023-01-29] MEDS ORDERED: DOXY-456 MT (16:40)
== END 2023-01-28 15:33 | disposition home or self-care (01) | DRG 194 ==
LOC: ER 16:13 → MICUSO 21:26 → 7EST 01-26 02:35
PROVIDERS: ADMIT Internal Medicine; ATTEND Internal Medicine
DX: I13.0 Hypertensive heart and chronic kidney disease with heart failure and stage 1 through stage 4 chronic kidney disease, or unspecified chronic kidney disease (principal); N17.9 Acute kidney failure, unspecified; E11.22 Type 2 diabetes mellitus with diabetic chronic kidney disease; E87.1 Hypo-osmolality and hyponatremia; E87.8 Other disorders of electrolyte and fluid balance, not elsewhere classified; Z79.01 Long term (current) use of anticoagulants; I50.21 Acute systolic (congestive) heart failure; I48.20 Chronic atrial fibrillation, unspecified; E87.6 Hypokalemia; N18.9 Chronic kidney disease, unspecified; J44.9 Chronic obstructive pulmonary disease, unspecified; E83.42 Hypomagnesemia; N40.0 Benign prostatic hyperplasia without lower urinary tract symptoms; Z90.49 Acquired absence of other specified parts of digestive tract; Z93.3 Colostomy status; Z79.899 Other long term (current) drug therapy
CPT/HCPCS: 36415; 71045; 76770; 80048; 80053; 80162; 80305; 81003; 82550; 82553; 82570; 82962; 83036; 83735; 83880; 84100; 84156; 84484; 85025; 93005; 93970; 94640; 99285; J1100; J1200; J1815; J1940; J3475

== ENCOUNTER 2023-01-29 15:38 | Emergency (ER) | payer MEDICAID ==
[~2023-01-29] VITALS: Ht 177.8 cm; Wt 91.0 kg
[2023-01-29] MEDS ORDERED: IPRATROPIUM BROMIDE (0.02%) 0.5MG/2.5ML NEB HHN STA (16:00)
[2023-01-29] MEDS ORDERED: ALBUTEROL (0.083%) 2.5MG/3ML NEB HHN STA (16:00)
[2023-01-29 16:15] VITALS: BP 112/74
[2023-01-29 16:30] LABS: HEMATOCRIT. 40.7 % (42.0-52.0); HEMOGLOBIN. 13.9 g/dL (14.0-18.0); MEAN CORPUSCULAR HEMOGLOBIN 30.5 pg (28.0-32.0); MEAN CORPUSCULAR VOLUME 89.3 fL (80.0-94.0); MEAN PLATELET VOLUME 8.3 fl (7.4-10.4); PLATELET 204 x1000/uL (130-400); RED BLOOD CELL COUNT 4.56 mill/uL (4.7-6.1); RED CELL DISTRIBUTION WIDTH 15.6 % (11.6-14.6)
[2023-01-29 16:38] LABS: CHLORIDE 92 mEq/L (98-107)
[2023-01-29] MEDS ORDERED: DOXY-456 MT (16:40)
[2023-01-29] MEDS ORDERED: GUAI600T26 MT (16:40)
[2023-01-29] MEDS ORDERED: ALBU6.7H15 INH (16:40)
[2023-01-29] MEDS ORDERED: DOXYCYCLINE HYCLATE 100MG CAPSULE PO ONE (16:45)
[2023-01-29] MEDS ORDERED: GUAIFENESIN 600MG ER TABLET PO ONE (16:45)
[2023-01-29 19:27] LABS: PLATELET ESTIMATE NORMAL
== END 2023-01-29 17:30 | disposition home or self-care (01) ==
LOC: ER 15:38
DX: J41.1 Mucopurulent chronic bronchitis (principal); I11.0 Hypertensive heart disease with heart failure; I50.9 Heart failure, unspecified; Z79.82 Long term (current) use of aspirin
CPT/HCPCS: 36415; 71045; 80053; 85025; 93005; 94640; 99285; Z7610

== ENCOUNTER 2023-10-24 08:48 | Emergency (ER) | payer MEDICAID ==
[~2023-10-24] VITALS: Ht 175.3 cm; Wt 117.2 kg
[~2023-10-24 08:48] MED LIST changes: +ALBU6.7H15 INH; +DOXY-456 MT; +GUAI600T26 MT; +LISI10TA26 PO; +ZOLP10TA2 PO
[2023-10-24 08:51] VITALS: BP 131/59; PULSE 63; RESP 16; TEMP 98.7; O2SAT 96
== END 2023-10-24 10:53 | disposition home or self-care (01) ==
LOC: ER 08:48
DX: K11.20 Sialoadenitis, unspecified (principal); J45.909 Unspecified asthma, uncomplicated; I11.0 Hypertensive heart disease with heart failure; I50.9 Heart failure, unspecified; E11.9 Type 2 diabetes mellitus without complications; Z98.890 Other specified postprocedural states
CPT/HCPCS: 99281

== ENCOUNTER 2024-10-09 15:09 | Emergency (ER) | payer MEDICAID ==
[~2024-10-09] VITALS: Ht 175.3 cm; Wt 104.0 kg
[~2024-10-09 15:09] MED LIST changes: -ALBU6.7H15 INH; -ALBU6.7H3 INH; +ALBU90AE INH; -ASPI-1406 MT; +ATOR40TA70 PO; -BUDE6HFA INH; -CARV25TA47 MT; +COR6 PO; +CYAN-117 PO; +CYCL10TA21 PO; -DIGO250T79 MT; -DILT240C91 MT; -DOXY-456 MT; +EMPA10TA PO; -FERR324T4 MT; -FURO-151 MT; +FURO40TA5 PO; +GABA-1180 PO; -GUAI600T26 MT; -LISI10TA26 PO; -MED4 MT; -PROT40 MT; +QUET50TA PO; -SACU1TAB MT; +SENN-139 PO; +SPIR25TA6 PO; +T3 PO; -ZOLP5TAB2 PO
[2024-10-09 15:25] VITALS: O2SAT 96
[2024-10-09 15:40] VITALS: BP 125/90; PULSE 125; RESP 18; TEMP 98.4; O2SAT 95
[2024-10-09 17:51] LABS: POTASSIUM 4.3 mEq/L (3.5-5.1)
[2024-10-09 17:57] LABS: CREATININE 1.8 mg/dL (0.6-1.3)
[2024-10-09 18:06] LABS: EOSINOPHILS % 5.7 % (0.0-5.0); HEMATOCRIT. 34.3 % (42.0-52.0); HEMOGLOBIN. 11.2 g/dL (14.0-18.0); LYMPHOCYTES % 28.8 % (20.0-50.0); MEAN CORPUSCULAR HEMOGLOBIN 29.8 pg (28.0-32.0); MEAN CORPUSCULAR HGB CONC 32.7 g/dL (31.0-37.0); MEAN CORPUSCULAR VOLUME 91.2 fL (80.0-94.0); MEAN PLATELET VOLUME 8.9 fl (7.4-10.4); MONOCYTES % 19.3 % (2.0-8.0); NEUTROPHILS % 45.2 % (40.0-76.0); PLATELET 198 x1000/uL (130-400); RED BLOOD CELL COUNT 3.76 mill/uL (4.7-6.1); RED CELL DISTRIBUTION WIDTH 17.3 % (11.6-14.6); WHITE BLOOD COUNT 4.4 x1000/uL (4.5-11.0)
[2024-10-09 18:07] LABS: DIFFERENTIAL COMMENT 1
== END 2024-10-09 16:50 | disposition left against medical advice (07) ==
LOC: ER 15:09
DX: R06.02 Shortness of breath (principal); I13.0 Hypertensive heart and chronic kidney disease with heart failure and stage 1 through stage 4 chronic kidney disease, or unspecified chronic kidney disease; N18.9 Chronic kidney disease, unspecified; I50.9 Heart failure, unspecified; J45.909 Unspecified asthma, uncomplicated; E11.9 Type 2 diabetes mellitus without complications; Z98.890 Other specified postprocedural states; Z53.21 Procedure and treatment not carried out due to patient leaving prior to being seen by health care provider
CPT/HCPCS: 36415; 71045; 80048; 85025; 93005